=== PATIENT | male | born 1995 | race Caucasian/White ===

== ENCOUNTER 2019-09-03 11:43 | Emergency (ER) | payer OTHER ==
[~2019-09-03] VITALS: Ht 172.7 cm; Wt 81.6 kg
[2019-09-03 11:45] VITALS: Ht 172.7 cm; Wt 81.6 kg
[2019-09-03 12:15] LABS: CALCIUM 8.9 mg/dL (8.5-10.1); CARBON DIOXIDE 29.6 mmol/L (21-32); CHLORIDE SERUM 103 mmol/L (98-107); GFR1 > 60 mL/min; GLUCOSE SERUM 123 mg/dL (74-106); POTASSIUM SERUM 4.4 mmol/L (3.5-5.1); SODIUM SERUM 139 mmol/L (136-145)
[2019-09-03 12:20] LABS: ALKALINE PHOSPHATASE 70 U/L (46-116); ALT/SGPT 38 U/L (16-63); AST/SGOT 18 U/L (15-37); BILIRUBIN TOTAL 0.5 mg/dL (0.20-1.00); TOTAL PROTEIN, SERUM 7.4 g/dL (6.4-8.2)
[2019-09-03 12:23] LABS: PLATELET COUNT 242 x10^3mcL (130-400)
[2019-09-03 12:24] LABS: BASOPHIL % 0.6 % (0-2)
[2019-09-03 16:55] VITALS: BP 98/59
== END 2019-09-03 16:55 | disposition short-term general hospital (02) ==
LOC: ED 11:43
PROVIDERS: Emergency Medicine
DX: S22.089A Unspecified fracture of T11-T12 vertebra, initial encounter for closed fracture (principal); S63.501A Unspecified sprain of right wrist, initial encounter; M54.5 Low back pain; V43.52XA Car driver injured in collision with other type car in traffic accident, initial encounter; Y93.I9 Activity, other involving external motion; Y92.488 Other paved roadways as the place of occurrence of the external cause; Y99.8 Other external cause status
CPT/HCPCS: J2270; J2405; J3010; Q0092; Q9967